=== PATIENT | male | born 1985 | race Caucasian/White ===

== ENCOUNTER 2024-08-10 15:11 | Emergency (ER) | payer MEDICAID, BC ==
[~2024-08-10] VITALS: Ht 180.3 cm; Wt 137.2 kg
[2024-08-10 16:51] LABS: BASOPHILS % (AUTO) 0.2 % (0-1); EOSINOPHILS # (AUTO) 0.1 X10'3 (0-0.9); EOSINOPHILS % (AUTO) 0.5 % (0-6); HEMATOCRIT 43.6 % (42.0-52.0); HEMOGLOBIN 14.5 g/dl (14.0-17.9); LYMPHOCYTES # (AUTO) 1.1 X10'3 (1.1-4.8); LYMPHOCYTES % (AUTO) 7.9 % (21-51); MEAN CORPUSCULAR HEMOGLOBIN 28.7 PG (27.0-31.0); MEAN CORPUSCULAR HGB CONC 33.1 g/dL (33.0-36.5); MEAN CORPUSCULAR VOLUME 86.7 FL (78-98); MEAN PLATELET VOLUME 7.9 FL (7.4-10.4); MONOCYTES # (AUTO) 0.4 X10'3 (0-0.9); MONOCYTES % (AUTO) 3.2 % (2-12); NEUTROPHILS # (AUTO) 12.5 X10'3 (1.8-7.7); NEUTROPHILS % (AUTO) 88.2 % (42-75); PLATELET COUNT 295 X10'3 (140-440); RED BLOOD COUNT 5.03 X10'6 (4.70-6.10); RED CELL DISTRIBUTION WIDTH 13.3 % (11.5-14.5); WHITE BLOOD COUNT 14.2 X10'3 (4.5-11.0)
[2024-08-10 17:03] LABS: ALBUMIN 4.3 G/DL (3.4-5.0); ANION GAP 13 (8-16); BLOOD UREA NITROGEN 23 MG/DL (7-18); BUN/CREATININE RATIO 22.8 (10.0-20.0); CHLORIDE 94 MMOL/L (99-107); CREATININE 1.01 MG/DL (0.60-1.10); MAGNESIUM 2.8 MG/DL (1.5-2.4); POTASSIUM 5.2 MMOL/L (3.5-5.1); SODIUM 131 MMOL/L (135-145); TOTAL CARBON DIOXIDE 23.8 MMOL/L (24-32); eCRCL 107 ML/MIN; eGFR 83 ML/MIN
[2024-08-10 17:08] LABS: GLUCOSE 457 MG/DL (70-104)
[2024-08-10] MEDS: insulin regular, human 10 units/0.1 ml syringe SQ ONE (17:12)
[2024-08-10] MEDS: CefTRIAXone 2gm/D5W 50ml BAG 50 ML IV ONE (17:43)
[2024-08-10] MEDS: normal saline 1000ML IV soln IVB ONE (17:43)
[2024-08-10 18:51] LABS: BILIRUBIN,URINE NEGATIVE (Neg); CLARITY,URINE CLEAR (Clear); COLOR,URINE YELLOW (Yellow); GLUCOSE, URINE >=1000 mg/dl (Neg); KETONES,URINE >=80 mg/dl (Neg); LEUKOCYTE ESTERASE ,URINE NEGATIVE (Neg); NITRITES, URINE NEGATIVE (Neg); OCCULT BLOOD,URINE NEGATIVE (Neg); PROTEIN,URINE NEGATIVE (Neg); UROBILINOGEN,URINE 0.2 E.U/dL (0.2-1.0)
[2024-08-10 18:56] LABS: UA COLLECTION TYPE CLN CATCH MIDSTREAM
[2024-08-10 19:00] LABS: BACTERIA,URINE FEW /HPF (Neg); RBC,URINE NONE SEEN /HPF (0-2); SQUAMOUS EPITHELIAL CELL,UR FEW /LPF (FEW); WBC,URINE NONE SEEN /HPF (0-4)
[2024-08-10] MEDS ORDERED: ondansetron/PF 4mg/2ml inj IV ONE (19:20)
[2024-08-10 19:43] VITALS: TEMP 97.7
[2024-08-10] MEDS ORDERED: ONDA-245 PO (20:20)
[2024-08-10] MEDS: insulin regular, human 10 units/0.1 ml syringe IV ONE (20:42)
[2024-08-10 20:52] VITALS: BP 138/84; PULSE 87; RESP 17; O2SAT 98
== END 2024-08-10 20:55 | disposition home or self-care (01) ==
LOC: ER 15:12
DX: E10.65 Type 1 diabetes mellitus with hyperglycemia (principal); R11.10 Vomiting, unspecified; R06.02 Shortness of breath; R10.30 Lower abdominal pain, unspecified; Z88.2 Allergy status to sulfonamides; Z79.899 Other long term (current) drug therapy; Z20.822 Contact with and (suspected) exposure to COVID-19
CPT/HCPCS: 36415; 71045; 80048; 81001; 82948; 83605; 83735; 84145; 85025; 87502; 87503; 87811; 96365; 96372; 96375; 99284; J0696; J1815; J7030; 99285